=== PATIENT | male | born 1990 | race Caucasian/White ===

== ENCOUNTER 2024-07-23 15:21 | Emergency (ER) | payer OTHER ==
[~2024-07-23] VITALS: Ht 185.4 cm; Wt 95.1 kg
[2024-07-23 17:31] LABS: BASO # 0.1 10^3/uL (0.0-0.2); BASO % 0.7 % (0.0-1.0); EOS # 0.3 10^3/uL (0.0-0.5); EOS % 3.5 % (0.0-3.0); HEMATOCRIT 42.5 % (42.0-52.0); HEMOGLOBIN 14.3 g/dl (13.5-17.5); LYMPH % 23.6 % (24.0-44.0); MEAN CORPUSCULAR HEMOGLOBIN 29.2 pg (27.0-33.0); MEAN CORPUSCULAR HGB CONC 33.6 g/dl (32.0-36.5); MEAN CORPUSCULAR VOLUME 86.9 fl (80.0-96.0); MONO # 0.8 10^3/uL (0.0-0.8); NEUTROPHILS # 5.1 10^3/uL (1.5-8.5); PLATELET COUNT, AUTOMATED 421 10^3/uL (150-450); RED BLOOD COUNT 4.89 10^6/uL (4.30-6.10); WHITE BLOOD COUNT 8.3 10^3/uL (4.0-10.0)
[2024-07-23 17:44] LABS: ERYTHROCYTE SEDIMENTATION RATE 30 mm/hr (0-15)
[2024-07-23 17:49] LABS: BLOOD UREA NITROGEN 11 MG/DL (9-23); CALCIUM LEVEL 9.1 MG/DL (8.5-10.1); CARBON DIOXIDE LEVEL 30 MMOL/L (20-31); CHLORIDE LEVEL 104 MMOL/L (98-107); CREATININE FOR GFR 0.83 MG/DL (0.70-1.30); GLOMERULAR FILTRATION RATE > 60.0 (>60); GLUCOSE, FASTING 89 MG/DL (60-100); POTASSIUM SERUM 4.2 MMOL/L (3.5-5.1); SODIUM LEVEL 138 MMOL/L (136-145)
[2024-07-23 19:56] LABS: ALBUMIN 3.7 G/DL (3.2-5.2); ALKALINE PHOSPHATASE 83 U/L (40-129); ALT/SGPT 35 U/L (7.0-40); AST/SGOT 23 U/L (<34); BILIRUBIN,DIRECT 0.2 MG/DL (<0.4); BILIRUBIN,TOTAL 0.5 MG/DL (0.3-1.2); TOTAL PROTEIN 7.4 G/DL (5.7-8.2)
[2024-07-23 19:58] LABS: FREE T4 1.36 NG/DL (0.89-1.76)
[2024-07-23 22:16] VITALS: BP 113/74; TEMP 98.9; O2SAT 99
== END 2024-07-23 22:17 | disposition home or self-care (01) ==
LOC: M ED 15:21
DX: R60.0 Localized edema (principal)

== ENCOUNTER → 2025-01-02 | Outpatient (REF) | LOC: M PLAIMG 12:24 | PROVIDERS: ATTEND Internal Medicine | DX: R07.9 Chest pain, unspecified (principal) ==

== ENCOUNTER 2025-02-04 07:31 | Observation (INO) | payer OTHER ==
[~2025-02-04] VITALS: Ht 185.4 cm; Wt 88.7 kg
[2025-02-04] MEDS ORDERED: [UNRECOGNIZED DRUG - CODE] (07:48)
[2025-02-04] MEDS ORDERED: ISOVUE-370 76% 100 ML VIAL As Ordered ONE (12:07)
[2025-02-04 12:10] LABS: BASO % 0.6 % (0.0-1.0); EOS # 0.2 10^3/uL (0.0-0.5); EOS % 2.5 % (0.0-3.0); HEMATOCRIT 47.9 % (42.0-52.0); HEMOGLOBIN 15.9 g/dl (13.5-17.5); LYMPH # 1.5 10^3/uL (1.5-5.0); LYMPH % 23.5 % (24.0-44.0); MEAN CORPUSCULAR HEMOGLOBIN 28.2 pg (27.0-33.0); MEAN CORPUSCULAR HGB CONC 33.2 g/dl (32.0-36.5); MEAN CORPUSCULAR VOLUME 85.1 fl (80.0-96.0); MONO # 0.6 10^3/uL (0.0-0.8); MONO % 10.1 % (2.0-8.0); NEUTROPHILS % 62.8 % (36.0-66.0); PLATELET COUNT, AUTOMATED 404 10^3/uL (150-450); RED BLOOD COUNT 5.63 10^6/uL (4.30-6.10); WHITE BLOOD COUNT 6.4 10^3/uL (4.0-10.0)
[2025-02-04 12:17] LABS: ERYTHROCYTE SEDIMENTATION RATE 18 mm/hr (0-15)
[2025-02-04] MEDS ORDERED: PREV1.1P2 PO (12:26)
[2025-02-04] MEDS ORDERED: HOME MED LIST COMPLETE! XX SCH (12:30)
[2025-02-04 12:33] LABS: CK-MB VALUE MASS < 1.0 NG/ML (<3.6); LIPASE 31 U/L (12-53)
[2025-02-04 12:35] LABS: ALKALINE PHOSPHATASE 71 U/L (40-129); ALT/SGPT 30 U/L (7.0-40); AST/SGOT 25 U/L (<34); BILIRUBIN,DIRECT 0.2 MG/DL (<0.4); BILIRUBIN,TOTAL 0.5 MG/DL (0.3-1.2); BLOOD UREA NITROGEN 9 MG/DL (9-23); C REACTIVE PROTEIN QUANTITATIV < 0.50 MG/DL (<1.0); CALCIUM LEVEL 9.6 MG/DL (8.5-10.1); CARBON DIOXIDE LEVEL 32 MMOL/L (20-31); CHLORIDE LEVEL 101 MMOL/L (98-107); CREATININE FOR GFR 0.88 MG/DL (0.70-1.30); GLOMERULAR FILTRATION RATE > 90.0 (>60); GLUCOSE, FASTING 89 MG/DL (60-100); POTASSIUM SERUM 4.6 MMOL/L (3.5-5.1); SODIUM LEVEL 141 MMOL/L (136-145); TOTAL PROTEIN 7.6 G/DL (5.7-8.2)
[2025-02-04 12:37] LABS: CPK CREATINE PHOSPHOKINASE 93 U/L (46-171); MB/CK RELATIVE INDEX 1.07 (< OR =4)
[2025-02-04 13:37] LABS: CK-MB VALUE MASS < 1.0 NG/ML (<3.6)
[2025-02-04 13:39] LABS: CPK CREATINE PHOSPHOKINASE 87 U/L (46-171); MB/CK RELATIVE INDEX 1.14 (< OR =4)
[2025-02-04] MEDS: KETOROLAC 30 MG/ML 1 ML VIAL IV ONE (15:15)
[2025-02-04] MEDS: LIDOCAINE 5% PATCH TD SCH (16:40)
[2025-02-04] MEDS: NS (Normal Saline) 0.9% 1,000 ML IV ONE (16:40)
[2025-02-04 17:09] LABS: PROCALCITONIN 0.05 ng/ml
[2025-02-04] MEDS: KETOROLAC 30 MG/ML 1 ML VIAL IV SCH (21:50)
[2025-02-05] VITALS (7 sets, daily range): BP systolic 100–123; BP diastolic 55–72; TEMP 97.5–98.5; O2SAT 94–99
[2025-02-05 06:56] LABS: HEMATOCRIT 42.5 % (42.0-52.0); HEMOGLOBIN 14.3 g/dl (13.5-17.5); MEAN CORPUSCULAR HEMOGLOBIN 28.8 pg (27.0-33.0); MEAN CORPUSCULAR HGB CONC 33.6 g/dl (32.0-36.5); MEAN CORPUSCULAR VOLUME 85.5 fl (80.0-96.0); PLATELET COUNT, AUTOMATED 327 10^3/uL (150-450); RED BLOOD COUNT 4.97 10^6/uL (4.30-6.10); WHITE BLOOD COUNT 5.5 10^3/uL (4.0-10.0)
[2025-02-05 06:58] LABS: BLOOD UREA NITROGEN 11 MG/DL (9-23); CALCIUM LEVEL 8.8 MG/DL (8.5-10.1); CARBON DIOXIDE LEVEL 30 MMOL/L (20-31); CHLORIDE LEVEL 104 MMOL/L (98-107); CREATININE FOR GFR 0.98 MG/DL (0.70-1.30); GLOMERULAR FILTRATION RATE > 90.0 (>60); GLUCOSE, FASTING 95 MG/DL (60-100); POTASSIUM SERUM 4.5 MMOL/L (3.5-5.1); SODIUM LEVEL 140 MMOL/L (136-145)
[2025-02-05] MEDS ORDERED: IBUP-1114 PO (16:17)
[2025-02-05] MEDS ORDERED: LIDO1PAD TOP (16:17)
[2025-02-05] MEDS ORDERED: ROCURONIUM BROMIDE 50MG/5ML VIAL As Ordered ONE (16:40)
[2025-02-05] MEDS ORDERED: LIDOCAINE 2% 100 MG/5 ML SDV (FOR ANES.) As Ordered ONE (16:40)
[2025-02-05] MEDS ORDERED: MIDAZOLAM INJ 2 MG/2 ML VIAL As Ordered ONE (16:40)
[2025-02-05] MEDS ORDERED: propofoL 200 MG/20 ML VIAL As Ordered ONE (16:40)
[2025-02-05] MEDS ORDERED: fentaNYL 100 MCG/2 ML INJECTION As Ordered ONE (16:40)
[2025-02-05] MEDS ORDERED: ONDANSETRON 4MG 2ML VIAL As Ordered ONE (17:19)
[2025-02-05] MEDS ORDERED: dexAMETHasone 4 MG/ML 1 ML VIAL As Ordered ONE (17:19)
[2025-02-05] MEDS ORDERED: SUGAMMADEX SODIUM 500 MG/5 ML VIAL As Ordered ONE (17:22)
[2025-02-05] MEDS: CETACAINE SPRAY 5 GM As Ordered ONE (17:22)
[2025-02-05] MEDS: LIDOCAINE VISCOUS 2% SOLN 15 ML UDC As Ordered ONE (19:00)
[2025-02-05] MEDS: EPINEPHrine 1 MG/10 ML SYRINGE 1.5IN As Ordered ONE (19:00)
[2025-02-05] MEDS: THROMBIN 5,000 UNITS VIAL As Ordered ONE (19:00)
[2025-02-05] MEDS: LIDOCAINE 4% TOPICAL SOLN 50 ML BTL As Ordered ONE (19:00)
[2025-02-06 00:46] VITALS: BP 101/56; TEMP 97.5; O2SAT 97
[2025-02-06 01:44] VITALS: BP 114/64; TEMP 98.3; O2SAT 98
[2025-02-06 02:45] VITALS: BP 104/55; TEMP 97.9; O2SAT 97
[2025-02-06 06:44] VITALS: BP 146/63; TEMP 98.9; O2SAT 97
[2025-02-06 08:00] VITALS: BP 116/55; TEMP 98.1; O2SAT 95
[2025-02-06 12:00] VITALS: BP 110/68; TEMP 98.2; O2SAT 96
== END 2025-02-06 12:30 | disposition home or self-care (01) ==
LOC: M ED 07:32 → M ED INP 07:33 → M MS4PR 02-05 00:32
PROVIDERS: ADMIT Internal Medicine; ATTEND Internal Medicine
DX: R59.0 Localized enlarged lymph nodes (principal); R07.89 Other chest pain; S83.91XD Sprain of unspecified site of right knee, subsequent encounter; X58.XXXD Exposure to other specified factors, subsequent encounter; Z91.030 Bee allergy status
CPT/HCPCS: 31624; 31653; 36415; 71045; 71275; 74177; 76705; 80047; 80048; 80076; 82550; 82553; 83690; 84145; 84484; 85025; 85027; 85652; 86140; 87070; 87102; 87116; 87205; 87206; 88108; 88173; 88305; 88313; 93005; 93041; 94760; 96361; 96374; 96375; 96376; 99285; J1100; J1885; J2250; J2405; J3010; Q9967